=== PATIENT | male | born 1960 | race Caucasian/White ===

== ENCOUNTER 2017-12-01 21:54 | Emergency (ER) | payer SELFPAY ==
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
[2017-12-01] MEDS ORDERED: CEPHALEXIN 500 MG CAPSULE PO STA (22:34)
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
== END 2017-12-01 23:17 | disposition home or self-care (01) ==
LOC: ER 21:54
DX: S89.92XA Unspecified injury of left lower leg, initial encounter (principal); L03.116 Cellulitis of left lower limb; V23.4XXA Motorcycle driver injured in collision with car, pick-up truck or van in traffic accident, initial encounter; F17.210 Nicotine dependence, cigarettes, uncomplicated
CPT/HCPCS: 99283